=== PATIENT | female | born 1945 | race Caucasian/White ===

== ENCOUNTER → 2018-04-17 | Outpatient (CLI) | payer OTHER, MEDICARE ==
[~2018-04-17] MED LIST: ACET-2247 PO; ALBU2.5V2 IH; AMLO5TAB7 PO; ASPI-555 PO; BIOT25008 PO; BUPR300T54 PO; CALC600T12 PO; DIPH50 PO; ESOM40CA PO; FISH1CAP49 PO; FLUT16H NASAL; FLUT1AER IH; FURO40TA5 PO; LOSA1TAB54 PO; METF-444 PO; METO-391 PO; SERT100T12 PO; VITA150T PO
== END | disposition home or self-care (01) ==
LOC: RAH 07:39
PROVIDERS: ATTEND Internal Medicine
DX: I10 Essential (primary) hypertension (principal)
CPT/HCPCS: 76770; 93975